=== PATIENT | female | born 1990 | race Caucasian/White ===

== ENCOUNTER 2021-05-30 09:28 | Emergency (ER) | payer OTHER ==
[~2021-05-30] VITALS: Ht 160 cm; Wt 57.6 kg
[2021-05-30 09:35] VITALS: BP 118/79
--- NOTE | 2021-05-30 10:58 | NUR ---
LAB AT BEDSIDE.
[2021-05-30] MEDS: KETOROLAC 60 MG/2 ML VIAL IM ONE (11:03)
[2021-05-30] MEDS: FAMOTIDINE 20 MG TAB PO ONE (11:04)
--- NOTE | 2021-05-30 11:04 | NUR ---
Ultrasound at bedside.
[2021-05-30 11:13] LABS: BASOPHILS % (AUTO) 0.6 % (0.0-2.0); EOSINOPHILS # (AUTO) 0.1 K/uL (0-0.4); EOSINOPHILS % (AUTO) 1.4 % (0.0-4.0); HEMATOCRIT 41.3 % (36-48); HEMOGLOBIN 13.9 g/dL (12.0-16.0); LYMPHOCYTES # (AUTO) 2.1 K/uL (2.5-16.5); LYMPHOCYTES % (AUTO) 29.1 % (20.5-51.1); MEAN CORPUSCULAR HEMOGLOBIN 31 pg (27-31); MEAN CORPUSCULAR HGB CONC 34 g/dL (33-37); MEAN CORPUSCULAR VOLUME 90.5 fL (80-94); MONOCYTES # (AUTO) 0.6 K/uL (0.8-1.0); MONOCYTES % (AUTO) 7.6 % (1.7-9.3); NEUTROPHILS # (AUTO) 4.4 K/uL (1.8-7.7); NEUTROPHILS % (AUTO) 61.3 % (42.2-75.2); PLATELET COUNT (AUTO) 339 K/uL (140-450); RED BLOOD CELL COUNT(AUTO) 4.56 MIL/uL (4.20-5.40); RED CELL DISTRIBUTION WIDTH 12.7 % (11.6-13.7); WHITE BLOOD COUNT (AUTO) 7.2 K/uL (4.8-10.8)
--- NOTE | 2021-05-30 11:15 | NUR ---
31 Y/O F BIB SELF FROM HOME, C/O EPIGASTRIC PAIN FOR 2 WEEKS, WORSENED IN THE PAST WEEK, NAUSEA AND CONSISTENT DIARRHEA FOR 4 DAYS. PT STATES APPETITE WAS NORMAL UNTIL TODAY. DENIES DYSURIA AND HEMATURIA. SKIN IS PINK/WARM/DRY; AAOX4 WITH EVEN AND STEADY GAIT; LUNGS CLEAR BL; HR EVEN AND REGULAR; PT DENIES ANY FEVER, CP, SOB, OR COUGH AT THIS TIME; PATIENT STATES PAIN OF 8/10 AT THIS TIME; VSS; PATIENT POSITIONED FOR COMFORT; HOB ELEVATED; BEDRAILS UP X2; BED DOWN. ER MD MADE AWARE OF PT STATUS. ABD SOUNDS X4 NORMOACTIVE FLAT/SOFT/NONTENDER. PMH: DENIES NKA MED: DENIES
[2021-05-30 11:25] LABS: ANION GAP 10.4 (8-16); CREATININE 0.6 mg/dL (0.6-1.3); POTASSIUM 4.4 mmol/L (3.5-5.1); TOTAL BILIRUBIN 0.3 mg/dL (0.0-1.0)
[2021-05-30] MEDS ORDERED: FAMO-92 PO (11:58)
[2021-05-30] MEDS ORDERED: ONDA-24 SL (11:58)
[2021-05-30 12:10] VITALS: BP 118/79
--- NOTE | 2021-05-30 12:10 | NUR ---
Patient discharged with v/s stable. Written and verbal after care instructions given and explained. Patient alert, oriented and verbalized understanding of instructions. Ambulatory with steady gait. All questions addressed prior to discharge. ID band removed. Patient advised to follow up with PMD. Rx of ONDANSETRON, FAMOTIDINE given. Patient educated on indication of medication including possible reaction and side effects. Opportunity to ask questions provided and answered.
== END 2021-05-30 12:10 | disposition home or self-care (01) ==
LOC: MED 09:28
DX: K29.70 Gastritis, unspecified, without bleeding (principal); E03.9 Hypothyroidism, unspecified; Z98.890 Other specified postprocedural states; Z79.899 Other long term (current) drug therapy
CPT/HCPCS: 36415; 76705; 80053; 81002; 81025; 83690; 85025; 96372; 99284; J1885; Q0092

== ENCOUNTER 2021-06-25 10:27 | Emergency (ER) | payer OTHER ==
[~2021-06-25] VITALS: Ht 160 cm; Wt 70.3 kg
[~2021-06-25 10:27] MED LIST: FAMO-92 PO; ONDA-188 SL
[2021-06-25 10:36] VITALS: BP 129/71
--- NOTE | 2021-06-25 10:40 | NUR ---
PT TO AWAIT IN LOBBY
[2021-06-25] MEDS ORDERED: DEXAMETHASONE 10 MG/ML VIAL PO ONE (11:05)
--- NOTE | 2021-06-25 11:10 | NUR ---
PT AMBULATED TO [facility]
--- NOTE | 2021-06-25 11:10 | NUR ---
31 Y/O FEMALE C/O SORE THROAT STARTED TODAY. DENIES ANY RECENT FEVER OR COUGH. REDENESS TO THROAT NOTED. BILAT TONSILS 2+. MEDHX: HYPOTHYROIDISM NKA
--- NOTE | 2021-06-25 11:20 | NUR ---
STREP SWAB COLLECTED AND SENT TO LAB WITH ANDREINA BRUNSON
[2021-06-25] MEDS ORDERED: IBUP-1842 PO (11:22)
[2021-06-25] MEDS ORDERED: PENI500T20 PO (12:23)
[2021-06-25 12:42] VITALS: BP 122/69
--- NOTE | 2021-06-25 12:42 | NUR ---
Patient discharged with v/s stable. Written and verbal after care instructions given and explained. Patient alert, oriented and verbalized understanding of instructions. Ambulatory with steady gait. All questions addressed prior to discharge. ID band removed. Patient advised to follow up with PMD. Rx of IBUPROFEN, AND PENICILLIN given. Patient educated on indication of medication including possible reaction and side effects. Opportunity to ask questions provided and answered.
== END 2021-06-25 12:42 | disposition home or self-care (01) ==
LOC: MED 10:27
DX: J02.9 Acute pharyngitis, unspecified (principal); E03.9 Hypothyroidism, unspecified; Z79.899 Other long term (current) drug therapy
CPT/HCPCS: 87081; 99283; J1100

== ENCOUNTER 2022-01-31 08:29 | Emergency (ER) | payer OTHER ==
[~2022-01-31] VITALS: Ht 165.1 cm; Wt 65.8 kg
[~2022-01-31 08:29] MED LIST changes: +IBUP-1842 PO; +PENI500T20 PO
--- NOTE | 2022-01-31 08:45 | NUR ---
PT AMBULATED TO BED 12.
[2022-01-31 08:46] VITALS: BP 124/80
--- NOTE | 2022-01-31 08:50 | NUR ---
PT C/O COUGH AND CONGESTION X2 DAYS. BREATHING UNLABORED. SPEAKING IN FULL SENTENCES. PENDING ER MD SOL.
[2022-01-31] MEDS ORDERED: LORA10TA19 PO (09:18)
[2022-01-31] MEDS ORDERED: PROM118S5 PO (09:18)
--- NOTE | 2022-01-31 09:34 | NUR ---
Patient discharged with v/s stable. Written and verbal after care instructions given and explained. Patient verbalized understanding. Ambulatory with steady gait. All questions addressed prior to discharge. Advised to follow up with PMD.
== END 2022-01-31 09:34 | disposition home or self-care (01) ==
LOC: MED 08:29
DX: B34.9 Viral infection, unspecified (principal); Z20.822 Contact with and (suspected) exposure to COVID-19; R05.9 Cough, unspecified; Z86.39 Personal history of other endocrine, nutritional and metabolic disease; Z79.899 Other long term (current) drug therapy; Z79.2 Long term (current) use of antibiotics; Z79.1 Long term (current) use of non-steroidal anti-inflammatories (NSAID)
CPT/HCPCS: 87635; 87804; 99283; C9803

== ENCOUNTER 2022-02-02 08:44 | Emergency (ER) | payer OTHER ==
[~2022-02-02] VITALS: Ht 160 cm; Wt 72.6 kg
[~2022-02-02 08:44] MED LIST changes: +LORA10TA19 PO; +PROM118S5 PO
[2022-02-02 08:46] VITALS: BP 119/80
--- NOTE | 2022-02-02 08:55 | NUR ---
PT WALKED TO ROOM 6 WITH STEADY GAIT
[2022-02-02] MEDS ORDERED: PSEU120T23 PO (09:08)
[2022-02-02] MEDS ORDERED: NAPR-54 PO (09:08)
[2022-02-02 09:13] VITALS: BP 119/80
--- NOTE | 2022-02-02 09:13 | NUR ---
Patient discharged with v/s stable. Written and verbal after care instructions given and explained. Patient alert, oriented and verbalized understanding of instructions. Ambulatory with steady gait. All questions addressed prior to discharge. ID band removed. Patient advised to follow up with PMD. Rx of NAPROXEN PSEUDOEPHEDRINE HCI given. Patient educated on indication of medication including possible reaction and side effects. Opportunity to ask questions provided and answered.
--- NOTE | 2022-02-02 09:14 | NUR ---
Chart checked and completed. The patient's care was reviewed and supervised by Josee Elaine RN.
== END 2022-02-02 09:13 | disposition home or self-care (01) ==
LOC: MED 08:44
DX: J06.9 Acute upper respiratory infection, unspecified (principal); E03.9 Hypothyroidism, unspecified; Z79.1 Long term (current) use of non-steroidal anti-inflammatories (NSAID); Z79.899 Other long term (current) drug therapy; Z79.2 Long term (current) use of antibiotics
CPT/HCPCS: 99282

== ENCOUNTER 2022-03-11 07:23 | Emergency (ER) | payer OTHER ==
[~2022-03-11] VITALS: Ht 160 cm; Wt 73.9 kg
[~2022-03-11 07:23] MED LIST changes: +NAPR-54 PO; +PSEU120T23 PO
[2022-03-11 07:29] VITALS: BP 140/89
[2022-03-11] MEDS ORDERED: ROB PO (07:49)
[2022-03-11] MEDS ORDERED: ALBU0.0912 INH (07:49)
[2022-03-11] MEDS ORDERED: CETI-366 PO (07:49)
[2022-03-11] MEDS ORDERED: SUD30 PO (07:49)
--- NOTE | 2022-03-11 08:03 | NUR ---
CRISTIANA AND FLU SWABS COLLECTED AND HANDED TO NAIL MAKER RUBIO
--- NOTE | 2022-03-11 08:12 | NUR ---
PRESENTS TO ED WITH C/O COUGH X1 MONTH WORSENING OVER THE LAST COUPLE OF DAYS, DENIES SOB. DENIES TAKING MEDS FOR COUGH.
[2022-03-11 08:19] VITALS: BP 140/89
--- NOTE | 2022-03-11 08:19 | NUR ---
Patient discharged with v/s stable. Written and verbal after care instructions ABOUT COUGH given and explained. Patient alert, oriented and verbalized understanding of instructions. Ambulatory with steady gait. All questions addressed prior to discharge. ID band removed. Patient advised to follow up with PMD. Rx of PROVENTIL, CETIRIZINE, ROBITUSSIN AND SUDAFED given. Patient educated on indication of medication including possible reaction and side effects. Opportunity to ask questions provided and answered.
== END 2022-03-11 08:19 | disposition home or self-care (01) ==
LOC: MED 07:23
DX: U07.1 COVID-19 (principal); E03.9 Hypothyroidism, unspecified
CPT/HCPCS: 99283

== ENCOUNTER 2022-12-03 05:21 | Emergency (ER) | payer OTHER ==
[~2022-12-03] VITALS: Ht 165.1 cm; Wt 78.0 kg
[~2022-12-03 05:21] MED LIST changes: +ALBU0.0912 INH; +CETI-366 PO; +ROB PO; +SUD30 PO
[2022-12-03 05:40] VITALS: BP 110/83
--- NOTE | 2022-12-03 05:40 | NUR ---
to bed 12
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
[2022-12-03 06:28] LABS: APPEARANCE,URINE CLEAR (CLEAR); BILIRUBIN,URINE NEGATIVE (NEGATIVE); BLOOD, URINE NEGATIVE (NEGATIVE); COLOR,URINE YELLOW (YELLOW); LEUKOCYTE ESTERASE ,URINE NEGATIVE (NEGATIVE); NITRITE, URINE NEGATIVE (NEGATIVE); PH,URINE 6.5 (5.0-9.0); UGLUCOSE NEGATIVE (NEGATIVE)
[2022-12-03] MEDS ORDERED: ACETAMINOPHEN EXTRA STRENGTH 500 MG TAB PO ONE (06:40)
[2022-12-03 07:49] LABS: BASOPHILS # (AUTO) 0.1 K/uL (0.00-0.22); BASOPHILS % (AUTO) 0.6 % (0.0-2.0); EOSINOPHILS # (AUTO) 0.1 K/uL (0-0.4); EOSINOPHILS % (AUTO) 1.3 % (0.0-4.0); HEMATOCRIT 36.9 % (36-48); HEMOGLOBIN 12.5 g/dL (12.0-16.0); LYMPHOCYTES # (AUTO) 2.2 K/uL (2.5-16.5); LYMPHOCYTES % (AUTO) 21.5 % (20.5-51.1); MEAN CORPUSCULAR HEMOGLOBIN 30 pg (27-31); MEAN CORPUSCULAR HGB CONC 34 g/dL (33-37); MEAN CORPUSCULAR VOLUME 88.5 fL (80-94); MONOCYTES # (AUTO) 0.9 K/uL (0.8-1.0); MONOCYTES % (AUTO) 8.4 % (1.7-9.3); NEUTROPHILS # (AUTO) 6.9 K/uL (1.8-7.7); NEUTROPHILS % (AUTO) 68.2 % (42.2-75.2); PLATELET COUNT (AUTO) 324 K/uL (140-450); RED BLOOD CELL COUNT(AUTO) 4.16 MIL/uL (4.20-5.40); RED CELL DISTRIBUTION WIDTH 13.4 % (11.6-13.7); WHITE BLOOD COUNT (AUTO) 10.2 K/uL (4.8-10.8)
--- NOTE | 2022-12-03 08:21 | NUR ---
PT TO WAIT IN LOBBY FOR RESULTS
[2022-12-03] MEDS ORDERED: DOXY1TCP PO (08:23)
[2022-12-03] MEDS ORDERED: ACET-10509 PO (08:23)
--- NOTE | 2022-12-03 08:25 | NUR ---
headache resolved. awaiting for lab results
[2022-12-03 08:30] LABS: ALBUMIN 3.1 g/dL (3.4-5.0); ANION GAP 11.2 (8-16); CARBON DIOXIDE 26.6 mmol/L (21-32); CREATININE 0.5 mg/dL (0.6-1.3); FREE T4 (FREE THYROXINE) 0.95 ng/dL (0.76-1.46); POTASSIUM 3.8 mmol/L (3.5-5.1); THYROID STIMULATING HORMONE 3.89 uIU/mL (0.34-3.74); TOTAL BILIRUBIN 0.2 mg/dL (0.0-1.0)
[2022-12-03 08:42] VITALS: BP 123/54
--- NOTE | 2022-12-03 08:43 | NUR ---
Patient discharged with v/s stable. Written and verbal after care instructions given and explained. Patient alert, oriented and verbalized understanding of instructions. Ambulatory with steady gait. All questions addressed prior to discharge. ID band removed. Patient advised to follow up with PMD. Rx of DICLEGIS, TYLENOL given. Patient educated on indication of medication including possible reaction and side effects. Opportunity to ask questions provided and answered.
== END 2022-12-03 08:42 | disposition home or self-care (01) ==
LOC: MED 05:21
DX: O26.892 Other specified pregnancy related conditions, second trimester (principal); R51.9 Headache, unspecified; E03.9 Hypothyroidism, unspecified; Z79.899 Other long term (current) drug therapy; Z3A.15 15 weeks gestation of pregnancy
CPT/HCPCS: 36415; 80053; 81003; 81025; 84439; 84443; 85025; 99283